=== PATIENT | male | born 1995 | race Caucasian/White ===

== ENCOUNTER 2019-08-28 14:06 | Emergency (ER) | payer OTHER ==
[~2019-08-28] VITALS: Ht 177.8 cm; Wt 90.7 kg
[2019-08-28] MEDS ORDERED: IBUPROFEN 400400 M2 PO (14:13)
[2019-08-28] MEDS ORDERED: NORFLEX100 MG PO (15:40)
[2019-08-28] MEDS ORDERED: TRAMADOL 50 MG50 MG PO (15:40)
[2019-08-28] MEDS ORDERED: IBUPROFEN 800800 M1 PO (15:40)
[2019-08-28 16:00] VITALS: BP 124/89
== END 2019-08-28 16:00 | disposition home or self-care (01) ==
LOC: ER 14:06 → EDBD 14:06 → ER 16:00
DX: S29.012A Strain of muscle and tendon of back wall of thorax, initial encounter (principal); F17.210 Nicotine dependence, cigarettes, uncomplicated; Z88.1 Allergy status to other antibiotic agents; X58.XXXA Exposure to other specified factors, initial encounter; Y93.89 Activity, other specified; Y92.89 Other specified places as the place of occurrence of the external cause; Y99.8 Other external cause status

== ENCOUNTER 2020-02-25 08:16 | Inpatient (IN) | payer OTHER ==
[~2020-02-25] VITALS: Ht 177.8 cm; Wt 110.2 kg
[~2020-02-25 08:16] MED LIST: IBUPROFEN 400400 M2 PO; IBUPROFEN 800800 M1 PO; NORFLEX100 MG PO; TRAMADOL 50 MG50 MG PO
[2020-02-25 08:26] VITALS: BP 145/92
[2020-02-25] MEDS ORDERED: SLEEP AID50 MG PO (08:32)
[2020-02-25 09:31] LABS: BASOPHILS 0.6 % (0.0-2.0); EOSINOPHILS 2.7 % (0.0-3.0); HEMATOCRIT 49.2 % (42.0-52.0); HEMOGLOBIN 17.1 gm/dL (14.0-18.0); LYMPHOCYTES 33.6 % (24.0-44.0); MCH 32.8 pg (26.0-34.0); MCHC 34.8 g/dL (28.0-37.0); MCV 94.2 fL (80.0-100.0); MONOCYTES 7.2 % (1.0-8.0); PLATELET COUNT 249 thou/uL (150-400); POLYS 55.9 % (36.0-66.0); RBC 5.22 mil/uL (4.50-6.00); RDW 12.3 % (10.5-14.5); WBC 7.2 thou/uL (4.0-11.0)
[2020-02-25 09:45] LABS: CALCIUM 9.3 mg/dL (8.5-10.1); CREATININE 1.1 mg/dL (0.7-1.3); POTASSIUM 4.4 mmol/L (3.5-5.1)
[2020-02-25 10:02] LABS: ALBUMIN 3.8 g/dL (3.4-5.0); TOTAL BILIRUBIN 0.4 mg/dL (0.2-1.0); TOTAL PROTEIN 7.7 g/dL (6.4-8.2)
[2020-02-25 12:12] VITALS: BP 138/82
--- NOTE | 2020-02-25 12:17 | NUR ---
REPORT ATTEMPTED TO MEDICAL NURSE. REPORTS UNABLE TO TAKE REPORT AND WILL CALL BACK.
[2020-02-25 12:54] VITALS: BP 105/49
[2020-02-25 13:00] VITALS: BP 123/74
--- NOTE | 2020-02-25 16:05 | NUR ---
PT ADMITTED FROM THE ER AT 1255. A&Ox4. ADMISSION COMPLEET. PT AMBULATORY WITH MINIMAL PAIN. PAIN DURING MOVEMENT. DIARRHEA THE LAST 4 DAYS. SURGERY IN THE MORNING. NPO AFTER MIDNIGHT. CLEAR LIQUIDS. NICOTINE PATCH APPLIED. IV PATENT WITH NO REDNESS OR EDEMA. FLUIDS INFUSING. SISTER UPDATED. PT DOES NOT WANT TO ENTER HIS DESIGNATED VISITOR UNTIL AFTER SURGERY. CALL LIGHT IN REACH. WILL CONTINUE TO MONITOR.
[2020-02-25 19:13] VITALS: BP 136/65
--- NOTE | 2020-02-26 03:10 | NUR ---
RECIEVED CARE OF THIS PATIENT AT 1900. PATIENT ALERT AND ORIENTED X4. UP IN ROOM. C/O ONLY MILD PAIN, SAYS NEEDS NOTHING FOR IT. REMAINS NPO FOR SURGERY IN AM. IV IN LAC PATENT IV FLUIDS. PT ANXIOUS FOR SURGERY. SLEPT MOST OF THE NIGHT.
--- NOTE | 2020-02-26 05:25 | NUR ---
PATIENT UP TO SHOWER FOR SURGERY.
[2020-02-26 08:15] VITALS: BP 126/73
[2020-02-26] MEDS ORDERED: OXYCODONE HCL 55 MG PO (10:38)
[2020-02-26] MEDS ORDERED: ACETAMINOPHEN325 M1 PO (10:38)
[2020-02-26] MEDS ORDERED: IBUPROFEN 200200 M1 PO (10:38)
[2020-02-26] MEDS ORDERED: COLACE 100 MG100 MG PO (10:39)
[2020-02-26] MEDS ORDERED: MIRALAX17 GM PO (10:39)
[2020-02-26 12:38] VITALS: BP 123/67
[2020-02-26 13:27] VITALS: BP 137/67
[2020-02-26 14:02] VITALS: BP 134/86
[2020-02-26 15:03] VITALS: BP 136/83
[2020-02-26 15:40] VITALS: BP 136/83
--- NOTE | 2020-02-26 16:49 | NUR ---
PT DID WELL AFTER SURGERY...VSS...VOIDED OVER 1100 ML...ATE 80% LUNCH...PAIN WELL CONTROLLED AND DENIES NAUSEA...
--- NOTE | 2020-02-27 16:07 | PATH ---
[facility] [address] [place] [address] PATHOLOGY RPT PROCEDURE Name: JOHANNALIAM Room #: 433-I [facility] IN M.R.#: [id number] Admission: 02/25/20 Date of : 89 Discharge: 02/26/20 Report #: [id number] Path Case #: [id number] [facility] Accession Number: [id number] . 01 Material submitted: . appendix - APPENDIX . 01 Clinical history: . Appendicitis . 02 Diagnosis: Appendix, appendectomy: - Marked acute appendicitis along with acute serositis. 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 . (IUV:mml; 02/27/2020) [facility] 02/27/2020 1406 Local . 02 Electronically signed: . Lisa Calhoun MD, Pathologist NPI- [id number] . 01 Gross description: . The specimen is received in formalin, labeled "marcos Brewster". Received is a predominantly fat wrapped vermiform appendix measuring 8.3 cm in length and ranges in diameter from 0.4 to 1.0 cm with a large amount of attached mesoappendix. The exposed serosal surface is pale lora, glistening to pink-brooke, ragged in appearance. The surgical margin is closed with a line of mani. The mani are removed the new margin is inked black. Sectioning reveals a pinpoint to patent lumen filled with a slight amount of blood coagulum. The specimen is submitted representatively in cassettes A1 and A2, with the proximal margin and bisected tip submitted in cassette A1. (CAA; 02/26/2020) [facility] 02/26/2020 1729 Local . 02 Pathologist provided ICD-10: K35.80, K65.8 . 02 CPT . 243155 Specimen Comment: A courtesy copy of this report has been sent to [phone] Specimen Comment: [id number] Specimen Comment: Report sent to / DR GERMAN Performed at: 01 [place] [address] PATHOLOGY RPT PROCEDURE Name: LIAM SPENCER Room #: 433-I [facility] IN M.R.#: [id number] Admission: 02/25/20 Date of : 89 Discharge: 02/26/20 Report #: [id number] Path Case #: [id number] [address] [facility] [address], [place], [place] [id number] MD Elliott Barry MD Phone: [phone] Performed at: [address] [id number] MD Lisa Calhoun MD Phone: [phone]
== END 2020-02-26 17:40 | disposition home or self-care (01) | DRG 343 ==
LOC: ER 08:16 → EROBS 11:57 → 4S 11:57
PROVIDERS: Emergency Medicine; ADMIT Surgery; ATTEND Surgery
PROC: 0DTJ4ZZ Resection of Appendix, Percutaneous Endoscopic Approach (ICD-10-PCS; principal; 2020-02-26)
DX: K35.80 Unspecified acute appendicitis (principal); F17.210 Nicotine dependence, cigarettes, uncomplicated; Z88.8 Allergy status to other drugs, medicaments and biological substances; Z79.891 Long term (current) use of opiate analgesic; Z79.899 Other long term (current) drug therapy; Z03.818 Encounter for observation for suspected exposure to other biological agents ruled out
CPT/HCPCS: 10195; 50010; 50101; 50249; 50411; 50555; 50558; 50739; 50740; 52265; 53307; 53310; 53312; 54022; 54118; 56525; 56526; 62110; 62900; 70005

== ENCOUNTER 2021-06-30 05:58 | Emergency (ER) | payer OTHER ==
[~2021-06-30] VITALS: Ht 175.3 cm; Wt 90.7 kg
[~2021-06-30 05:58] MED LIST changes: +ACETAMINOPHEN325 M1 PO; +COLACE 100 MG100 MG PO; +IBUPROFEN 200200 M1 PO; +MIRALAX17 GM PO; +OXYCODONE HCL 55 MG PO; +SLEEP AID50 MG PO
[2021-06-30 06:05] VITALS: BP 143/91
[2021-06-30] MEDS ORDERED: PROAIR HFA8.5 GM INH (06:59)
== END 2021-06-30 07:14 | disposition home or self-care (01) ==
LOC: ER 05:58
PROVIDERS: Student in an Organized Health Care Education/Training Program
DX: B34.9 Viral infection, unspecified (principal); Z20.822 Contact with and (suspected) exposure to COVID-19; R06.02 Shortness of breath; F17.210 Nicotine dependence, cigarettes, uncomplicated; Z79.899 Other long term (current) drug therapy; Z88.6 Allergy status to analgesic agent